=== PATIENT | male | born 1995 | race Caucasian/White ===

== ENCOUNTER 2017-10-13 18:21 | Emergency (ER) | payer OTHER ==
[~2017-10-13] VITALS: Ht 172.7 cm; Wt 81.6 kg
[2017-10-13 18:23] VITALS: BP 97/54
[2017-10-13] MEDS ORDERED: NACL 0.9% 1,000 ML IV ONE (18:35)
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
[2017-10-13 19:06] LABS: BASOPHILS # (AUTO) 0.4 K/uL (0.00-0.22); EOSINOPHILS # (AUTO) 0.2 K/uL (0-0.4); HEMATOCRIT 47.4 % (36-52); HEMOGLOBIN 15.6 g/dL (12.0-18.0); LYMPHOCYTES # (AUTO) 1.1 K/uL (2.0-11.5); MEAN CORPUSCULAR HEMOGLOBIN 28 pg (27-31); MEAN CORPUSCULAR HGB CONC 33 g/dL (33-37); MEAN CORPUSCULAR VOLUME 86.5 fL (80-94); MONOCYTES # (AUTO) 0.9 K/uL (0.8-1.0); NEUTROPHILS # (AUTO) 9.4 K/uL (1.8-7.7); PLATELET COUNT (AUTO) 289 K/uL (140-450); RED BLOOD CELL COUNT(AUTO) 5.48 MIL/uL (4.20-6.10); RED CELL DISTRIBUTION WIDTH 13.2 % (11.6-13.7)
--- NOTE | 2017-10-13 19:30 | NUR ---
Patient being evaluated by physician at bedside.
[2017-10-13 19:36] LABS: ALBUMIN 4.2 g/dL (3.4-5.0); ANION GAP 19.7 (8-16); CARBON DIOXIDE 20.6 mmol/L (21-32); CREATININE 1.2 mg/dL (0.7-1.3); POTASSIUM 3.3 mmol/L (3.5-5.1); TOTAL BILIRUBIN 1.5 mg/dL (0.0-1.0)
--- NOTE | 2017-10-13 20:25 | NUR ---
Patient appears to be resting comfortably in bed. Vital Signs within normal limits. Respirations even and unlabored.
[2017-10-13 21:11] LABS: APPEARANCE,URINE CLEAR (CLEAR); BILIRUBIN,URINE NEGATIVE (NEGATIVE); BLOOD, URINE 1+ (NEGATIVE); COLOR,URINE YELLOW (YELLOW); LEUKOCYTE ESTERASE ,URINE NEGATIVE (NEGATIVE); NITRITE, URINE NEGATIVE (NEGATIVE); UGLUCOSE NEGATIVE (NEGATIVE)
[2017-10-13 21:14] LABS: RBC,URINE 3-10 (FEW) /HPF (0-5); WBC,URINE 0-5 (RARE) /HPF (0-5)
--- NOTE | 2017-10-13 22:45 | NUR ---
PT AWAKE, ALERT AND ORIENTED X 4. EATING A SANDWICH AT BEDSIDE, STATES HIS PAIN IS 4/10 ON FINGERS BILATERAL HANDS. ER MD MADE AWARE.
[2017-10-13] MEDS ORDERED: KETOROLAC 30 MG/ML VIAL IVP ONE (22:50)
[2017-10-13] MEDS ORDERED: ACETAMINOPHEN EXTRA STRENGTH 500 MG TAB PO ONE (22:50)
[2017-10-13 23:07] VITALS: BP 109/80
--- NOTE | 2017-10-13 23:07 | NUR ---
Pt passed the road test. Patient discharged with v/s stable. Written and verbal after care instructions given and explained. Patient verbalized understanding. Ambulatory with steady gait. All questions addressed prior to discharge. Advised to follow up with PMD.
--- NOTE | 2017-10-14 00:25 | NUR ---
Note césar in ED - 10/14/17 at 0026 by [facility] Patient discharged with v/s stable. Written and verbal after care instructions given and explained. Patient verbalized understanding. Ambulatory with steady gait. All questions addressed prior to discharge. Advised to follow up with PMD.
== END 2017-10-14 01:18 | disposition home or self-care (01) ==
LOC: MED 18:21
DX: F10.129 Alcohol abuse with intoxication, unspecified (principal)
CPT/HCPCS: 36415; 80053; 81001; 85025; 99284; G0482

== ENCOUNTER 2017-10-15 15:30 | Emergency (ER) | payer OTHER ==
[~2017-10-15] VITALS: Ht 167.6 cm; Wt 83.5 kg
[2017-10-15 15:35] VITALS: BP 131/75
--- NOTE | 2017-10-15 15:43 | NUR ---
PT AMB TO [facility]
--- NOTE | 2017-10-15 15:45 | NUR ---
PATIENT PRESENTS TO ED WITH THE CHIEF C/O RIGHT SHOULDER PAIN. DENIES N/V/D; SKIN IS PINK/WARM/DRY; AAOX4 WITH EVEN AND STEADY GAIT; LUNGS CLEAR BL; HR EVEN AND REGULAR; PT DENIES ANY FEVER, CP, SOB, OR COUGH AT THIS TIME; PATIENT STATES PAIN OF 8/10 AT THIS TIME; VSS.
--- NOTE | 2017-10-15 15:58 | NUR ---
PT EVALUATED BY DR. COLVIN.
[2017-10-15] MEDS ORDERED: CYCLOBENZAPRINE 10 MG TAB PO ONE (16:05)
[2017-10-15] MEDS ORDERED: KETOROLAC 30 MG/ML VIAL IM ONE (16:05)
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
--- NOTE | 2017-10-15 16:14 | NUR ---
RETURNED FROM X-RAY.
--- NOTE | 2017-10-15 16:36 | NUR ---
Patient being reevaluated by DR COLVIN at bedside.
[2017-10-15 16:39] VITALS: BP 120/63
--- NOTE | 2017-10-15 16:39 | NUR ---
Patient discharged with v/s stable. Written and verbal after care instructions given and explained. Patient alert, oriented and verbalized understanding of instructions. Ambulatory with steady gait. All questions addressed prior to discharge. ID band removed. Patient advised to follow up with PMD. Rx of IBUPROFEN & FLEXERIL given. Patient educated on indication of medication including possible reaction and side effects. Opportunity to ask questions provided and answered.
== END 2017-10-15 16:39 | disposition home or self-care (01) ==
LOC: MED 15:30
DX: S46.911A Strain of unspecified muscle, fascia and tendon at shoulder and upper arm level, right arm, initial encounter (principal); F12.10 Cannabis abuse, uncomplicated; J45.909 Unspecified asthma, uncomplicated; X58.XXXA Exposure to other specified factors, initial encounter; Y93.89 Activity, other specified; Y92.89 Other specified places as the place of occurrence of the external cause; Y99.8 Other external cause status
CPT/HCPCS: 73030; 96372; 99284; J1885

== ENCOUNTER 2020-07-25 00:10 | Emergency (ER) | payer OTHER ==
[~2020-07-25] VITALS: Ht 167.6 cm; Wt 95.3 kg
[2020-07-25 01:05] VITALS: BP 141/90
--- NOTE | 2020-07-25 01:10 | NUR ---
patient seen and assessed by THOMAS
--- NOTE | 2020-07-25 02:13 | NUR ---
PT EVALUATED BY ERMD, NO NURSING CARE PROVIDED.
--- NOTE | 2020-07-25 02:14 | NUR ---
Patient discharged with v/s stable. Written and verbal after care instructions given and explained. Patient verbalized understanding. Ambulatory with steady gait. All questions addressed prior to discharge. Advised to follow up with PMD.
== END 2020-07-25 02:14 | disposition home or self-care (01) ==
LOC: MED 00:10
DX: F15.90 Other stimulant use, unspecified, uncomplicated (principal); F41.9 Anxiety disorder, unspecified; R42 Dizziness and giddiness; R06.02 Shortness of breath; J45.909 Unspecified asthma, uncomplicated; F12.90 Cannabis use, unspecified, uncomplicated
CPT/HCPCS: 99281

== ENCOUNTER 2021-06-18 16:54 | Emergency (ER) | payer OTHER ==
[~2021-06-18] VITALS: Ht 167.6 cm; Wt 104.3 kg
[2021-06-18 17:33] VITALS: BP 149/100
--- NOTE | 2021-06-18 17:37 | NUR ---
Elba lindsey in [facility] - 06/18/21 at 1738 by MED[facility] JAVID.
[2021-06-18] MEDS ORDERED: IBUPROFEN 600 MG TAB PO ONE (18:50)
[2021-06-18] MEDS ORDERED: CYCLOBENZAPRINE 10 MG TAB PO ONE (18:50)
--- NOTE | 2021-06-18 18:57 | NUR ---
PT W/C ASSISTED TO ER BED 5
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
--- NOTE | 2021-06-18 19:22 | NUR ---
GAVE REPORT TO JUSTINE COREY.
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
--- NOTE | 2021-06-18 19:31 | NUR ---
X-Ray at bedside.
[2021-06-18] MEDS ORDERED: ACET-10509 PO (19:53)
[2021-06-18] MEDS ORDERED: IBUP-2213 PO (19:53)
[2021-06-18 20:11] VITALS: BP 129/72
--- NOTE | 2021-06-18 20:11 | NUR ---
Patient discharged with v/s stable. Written and verbal after care instructions given and explained. Patient alert, oriented and verbalized understanding of instructions. Ambulatory with steady gait. All questions addressed prior to discharge. ID band removed. Patient advised to follow up with PMD. Rx of IBUPROFEN, ACETAMINOPHEN given. Patient educated on indication of medication including possible reaction and side effects. Opportunity to ask questions provided and answered.
== END 2021-06-18 20:11 | disposition home or self-care (01) ==
LOC: MED 16:54
DX: M54.2 Cervicalgia (principal); R07.89 Other chest pain; M25.511 Pain in right shoulder; J45.909 Unspecified asthma, uncomplicated; Z79.899 Other long term (current) drug therapy; Z79.1 Long term (current) use of non-steroidal anti-inflammatories (NSAID); V89.2XXA Person injured in unspecified motor-vehicle accident, traffic, initial encounter; Y93.89 Activity, other specified; Y92.410 Unspecified street and highway as the place of occurrence of the external cause; Y99.8 Other external cause status
CPT/HCPCS: 71045; 99283